=== PATIENT | female | born 1980 | race Hispanic/Latino ===

== ENCOUNTER 2017-10-22 17:46 | Inpatient (IN) | payer OTHER ==
[~2017-10-22] VITALS: Ht 160 cm; Wt 79.8 kg
[2017-10-22 17:58] VITALS: BP 156/93
[2017-10-22 18:54] VITALS: BP 131/88
[2017-10-22 19:11] LABS: UR CREATININE CONCENTRATION 13.5 MG/DL
[2017-10-22] MEDS ORDERED: ELITE OB DHA S1 EACH PO (19:11)
[2017-10-22 19:13] LABS: BASOPHIL (%) 0.3 % (0-1); BASOPHIL COUNT 0.1 K/uL (0-0.1); EOSINOPHIL (%) 1.1 % (0-5); EOSINOPHIL COUNT 0.2 K/uL (0-0.3); HEMATOCRIT 30.4 % (36.0-46.0); HEMOGLOBIN 10.4 G/DL (11.9-15.5); IMMATURE GRANULOCYTE (%) 1.2 % (0.0-0.7); LYMPHOCYTE (%) 20.6 % (15-42); LYMPHOCYTE COUNT 3.9 K/uL (1.0-2.8); MCH 31.7 PG (29.0-34.0); MCHC 34.2 G/DL (30.0-36.0); MCV 92.7 FL (83-99); MONOCYTE (%) 10.3 % (3-12); NEUTROPHIL (%) 66.5 % (45-76); NEUTROPHIL COUNT 12.7 K/uL (1.8-6.4); PLATELET COUNT 137 K/uL (156-360); RBC DIS.WIDTH-CV 12.7 % (11.8-14.6); RBC DIS.WIDTH-SD 42.6 % (39-53); RED BLOOD COUNT 3.28 M/uL (3.80-5.20)
[2017-10-22 19:26] VITALS: BP 142/86
[2017-10-22 19:26] LABS: ALBUMIN 3.3 G/DL (3.2-4.8); CHLORIDE 108 MEQ/L (99-109); POTASSIUM 3.7 MEQ/L (3.7-5.4); SODIUM 138 MEQ/L (136-147); TOTAL BILIRUBIN 0.3 MG/DL (0.0-1.0)
[2017-10-22 19:31] LABS: ALKALINE PHOSPHATASE 105 IU/L (3-129); ALT (GPT) 23 IU/L (3-49); AST (GOT) 21 IU/L (2-34); CREATININE 0.5 MG/DL (0.6-1.3); GFR ESTIMATE (CALCULATED) > 59 mL/min/; GLUCOSE 76 mg/dL (70-99); TOTAL PROTEIN 6.3 G/DL (6.4-8.3); UREA NITROGEN (BUN) 10 mg/dL (9-23)
[2017-10-22 20:01] VITALS: BP 164/104
[2017-10-22] MEDS ORDERED: PERCOCET 5/31 TABLET PO (20:22)
[2017-10-22] MEDS ORDERED: MOTRIN800 MG PO (20:22)
[2017-10-22 20:59] LABS: AMPHETAMINE NEGATIVE (500 ng/mL); BARBITURATES NEGATIVE (200 ng/mL); BENZODIAZEPINES NEGATIVE (150 ng/mL); BUPRENORPHINE NEGATIVE (10 ng/mL); COCAINE NEGATIVE (150 ng/mL); METHADONE NEGATIVE (200 ng/mL); METHAMPHETAMINE NEGATIVE (500 ng/mL); OPIATES (MORPHINE) NEGATIVE (100 ng/mL); OXYCODONE NEGATIVE (100 ng/mL); PHENCYCLIDINE NEGATIVE (25 ng/mL); PROPOXYPHENE NEGATIVE (300 ng/mL); THC CANNABINOIDS NEGATIVE (50 ng/mL); TRICYCLIC ANTIDEPRESSANTS NEGATIVE (300 ng/mL)
[2017-10-22 21:19] LABS: BASE EXCESS -3.4 mEq/L (-3 to +3); BICARBONATE 21.4 mEq/L (22-26); CARBOXY HGB 1.5 % (0-5); COMMENTS - BLOOD GASES C+; PCO2 37 mm Hg (35-45); PO2 < 32 mm Hg (80-100); SITE CORD BLOOD; pH 7.37 (7.35-7.45)
[2017-10-22 22:30] VITALS: BP 136/82
[2017-10-22 23:16] VITALS: BP 135/77
[2017-10-23 00:31] VITALS: BP 154/85
[2017-10-23 02:02] VITALS: BP 137/82
[2017-10-23 04:42] VITALS: BP 134/77
[2017-10-23 05:26] VITALS: BP 133/74
[2017-10-23 06:03] LABS: BASOPHIL (%) 0.2 % (0-1); BASOPHIL COUNT 0.1 K/uL (0-0.1); EOSINOPHIL (%) 0.2 % (0-5); EOSINOPHIL COUNT 0.1 K/uL (0-0.3); HEMATOCRIT 30.1 % (36.0-46.0); HEMOGLOBIN 10.3 G/DL (11.9-15.5); LYMPHOCYTE (%) 16.3 % (15-42); LYMPHOCYTE COUNT 4.4 K/uL (1.0-2.8); MCH 31.5 PG (29.0-34.0); MCHC 34.2 G/DL (30.0-36.0); MONOCYTE (%) 6.7 % (3-12); MONOCYTE COUNT 1.8 K/uL (0-0.8); NEUTROPHIL (%) 74.6 % (45-76); PLATELET COUNT 147 K/uL (156-360); RBC DIS.WIDTH-CV 12.5 % (11.8-14.6); RBC DIS.WIDTH-SD 41.7 % (39-53); RED BLOOD COUNT 3.27 M/uL (3.80-5.20); WHITE BLOOD COUNT 26.9 K/uL (4.1-10.2)
[2017-10-24 03:15] VITALS: BP 109/72
[2017-10-24 05:57] LABS: BASOPHIL (%) 0.3 % (0-1); BASOPHIL COUNT 0.1 K/uL (0-0.1); EOSINOPHIL (%) 0.6 % (0-5); EOSINOPHIL COUNT 0.1 K/uL (0-0.3); HEMOGLOBIN 9.5 G/DL (11.9-15.5); IMMATURE GRANULOCYTE (%) 1.3 % (0.0-0.7); LYMPHOCYTE (%) 22.2 % (15-42); MCH 31.5 PG (29.0-34.0); MCHC 33.9 G/DL (30.0-36.0); MCV 92.7 FL (83-99); MONOCYTE (%) 8.4 % (3-12); MONOCYTE COUNT 1.9 K/uL (0-0.8); NEUTROPHIL (%) 67.2 % (45-76); PLATELET COUNT 156 K/uL (156-360); RBC DIS.WIDTH-CV 12.5 % (11.8-14.6); RBC DIS.WIDTH-SD 42.4 % (39-53); RED BLOOD COUNT 3.02 M/uL (3.80-5.20); WHITE BLOOD COUNT 22.3 K/uL (4.1-10.2)
[2017-10-24 08:27] VITALS: BP 133/77
[2017-10-24 19:00] VITALS: BP 136/77
[2017-10-24 22:15] VITALS: BP 131/78
[2017-10-25 07:03] VITALS: BP 125/88
[2017-10-25 11:11] VITALS: BP 128/85
[2017-10-25 15:45] VITALS: BP 120/77
[2017-10-25 19:44] VITALS: BP 129/85
[2017-10-25 22:59] VITALS: BP 128/87
[2017-10-26 07:21] VITALS: BP 126/81
[2017-10-26 11:25] VITALS: BP 135/88
== END 2017-10-26 12:05 | disposition home or self-care (01) | DRG 765 ==
LOC: LDRP-OP 17:46 → 2WEST 17:49 → LDRP-OP 12-31 17:00
PROVIDERS: Obstetrics & Gynecology
PROC: 10D00Z1 Extraction of Products of Conception, Low, Open Approach (ICD-10-PCS; principal; 2017-10-22)
DX: O40.3XX1 Polyhydramnios, third trimester, fetus 1 (principal); O60.14X1 Preterm labor third trimester with preterm delivery third trimester, fetus 1; O99.12 Other diseases of the blood and blood-forming organs and certain disorders involving the immune mechanism complicating childbirth; Z37.0 Single live birth; Z3A.34 34 weeks gestation of pregnancy; O76 Abnormality in fetal heart rate and rhythm complicating labor and delivery; O13.4 Gestational [pregnancy-induced] hypertension without significant proteinuria, complicating childbirth; O64.1XX1 Obstructed labor due to breech presentation, fetus 1; O69.81X1 Labor and delivery complicated by cord around neck, without compression, fetus 1; O69.82X1 Labor and delivery complicated by other cord entanglement, without compression, fetus 1; O69.89X1 Labor and delivery complicated by other cord complications, fetus 1; D72.829 Elevated white blood cell count, unspecified; D69.59 Other secondary thrombocytopenia; Z82.49 Family history of ischemic heart disease and other diseases of the circulatory system; Z83.3 Family history of diabetes mellitus
CPT/HCPCS: 36600; 80053; 82570; 82803; 84156; 85025; 86850; 86900; 86901; 88307; J0690; J0702; J1100; J1885; J2274; J2405; J7120; S0020